=== PATIENT | female | born 1965 | race Caucasian/White ===

== ENCOUNTER → 2017-03-26 | Outpatient (CLI) | payer BC ==
[~2017-03-26] MED LIST: CALCTAB5 PO; CEPH500C PO; HYDR-5688 PO; MULT-506 PO; SULF800T23 PO
--- NOTE | 2017-03-26 15:30 | MAMMOGRAPHY REPORT ---
BILATERAL DIGITAL SCREENING MAMMOGRAM TOMOSYNTHESIS WITH CAD: 03/26/2017 CLINICAL HISTORY: Routine screening. Patient has no complaints. TECHNIQUE: Breast tomosynthesis in addition to standard 2D mammography was performed. Current study was also evaluated with a Computer Aided Detection (CAD) system. COMPARISON: Comparison is made to exams dated: 03/25/2016 mammogram, 03/23/2015 mammogram, 01/26/2013 m ammogram, 11/08/2010 mammogram, and 11/03/2009 mammogram - [facility]. BREAST COMPOSITION: The tissue of both breasts is heterogeneously dense, which may obscure small mas ses. FINDINGS: There are multiple bilateral circumscribed masses scattered throughout the breasts, which i s atypically benign mammographic pattern. Some have slightly fluctuated in size compared to prior ma mmograms. No suspicious spiculated or irregular mass, architectural distortion or cluster of suspici ous microcalcifications is seen. IMPRESSION: ACR BI-RADS CATEGORY 1: NEGATIVE There is no mammographic evidence of malignancy. A 1 year screening mammogram is recommended. The pa tient will receive written notification of the results. Approximately 10% of breast cancers are not detected with mammography. A negative mammographic report should not delay biopsy if a clinically suggestive mass is present. Bea Puentes M.D. ay/:03/26/2017 15:12:54 Body Worker: Shahla ZAPATA(R)(M), [facility] letter sent: Normal 1/2 BI-RADS Code: ACR BI-RADS Category 1: Negative
== END | disposition home or self-care (01) ==
LOC: C.MAMM 14:44
PROVIDERS: ATTEND Obstetrics & Gynecology
DX: Z12.31 Encounter for screening mammogram for malignant neoplasm of breast (principal)